=== PATIENT | male | born 2000 | race Caucasian/White ===

== ENCOUNTER 2025-10-24 11:12 | Emergency (ER) | payer MEDICARE, SELFPAY ==
[2025-10-24] MEDS ORDERED: Ondansetron PF 4 MG/2 ML Vial ONE ×2 (11:55→13:41)
[2025-10-24] MEDS ORDERED: Famotidine/PF 20 mg/2ml Vial ONE (11:55)
[2025-10-24 12:09] LABS: Hematocrit 47.9 % (42.0-52.0); Hemoglobin 18.0 g/dL (14.0-18.0); Mean Corpuscular Hemoglobin 31.5 pg (27.0-31.0); Mean Corpuscular Volume 83.7 fl (78.0-98.0); Red Blood Cell (RBC) Count 5.72 mill/uL (4.70-6.10); White Blood Cell (WBC) Count 13.3 10x3/uL (4.8-10.8)
[2025-10-24 12:10] LABS: Platelet Count 318 10x3/uL (130-400)
[2025-10-24 12:12] LABS: ALT (SGPT) 20 U/L (Less than 45); AST (SGOT) 21 U/L (11-34); Albumin 4.7 g/dL (3.1-4.5); Alkaline Phosphatase 77 U/L (40-110); Anion Gap 18 mmol/L (10-20); BUN (Urea Nitrogen) 20 mg/dL (8.9-20.6); Bilirubin, Total 1.2 mg/dL (0.3-1.2); Calc. Creatinine Clearance 0 mL/min (70-130); Calcium 9.7 mg/dL (7.8-10.44); Carbon Dioxide 21 mmol/L (22-29); Chloride 105 mmol/L (98-107); Globulin 3.4 g/dL (2.4-3.5); Glucose 97 mg/dL (70-105); Lipase 13 U/L (8-78); Potassium 4.0 mmol/L (3.5-5.1); Sodium 140 mmol/L (136-145)
== END 2025-10-24 14:59 | disposition home or self-care (01) ==
LOC: NAV ERS 11:12
DX: K52.9 Noninfective gastroenteritis and colitis, unspecified (principal)
CPT/HCPCS: 74177; 80053; 83690; 85025; 96361; 96374; 96375; 96376; J1308; J2405; J2550; J7030